=== PATIENT | male | born 1980 | race Two or more races ===

== ENCOUNTER 2020-03-09 09:49 | Emergency (ER) | payer MEDICAID, OTHER, SELFPAY ==
[~2020-03-09] VITALS: Ht 172.7 cm; Wt 105.6 kg
[2020-03-09 09:57] VITALS: BP 124/78
[2020-03-09] MEDS ORDERED: DIPHENHYDRAMINE 50 MG CAPSULE ONE (10:23)
[2020-03-09] MEDS ORDERED: FAMOTIDINE 20 MG TABLET ONE (10:23)
--- NOTE | 2020-03-09 10:28 | NUR ---
irritated skin to arms/legs torso sparing palms/soles/mucous membranes No kknown cause
[2020-03-09] MEDS ORDERED: DIPHENHYDRAMINE 12.5MG/5ML, 10ML UDC PO ONE (10:30)
[2020-03-09] MEDS ORDERED: FAMOTIDINE 20 MG TABLET PO ONE (10:30)
[2020-03-09] MEDS ORDERED: prednisOLONE 15 MG/5 ML ORAL SOLN PO ONE (10:30)
--- NOTE | 2020-03-09 10:30 | NUR ---
MEDICATED PER EMAR
[2020-03-09] MEDS ORDERED: DIPHENHYDRAMINE 25 MG CAPSULE PO ONE (11:00)
--- NOTE | 2020-03-09 11:13 | NUR ---
With reassessment no improvement in symptoms, nor any worsening
== END 2020-03-09 11:57 | disposition home or self-care (01) ==
LOC: ED 11:53
DX: R21 Rash and other nonspecific skin eruption (principal); T78.1XXA Other adverse food reactions, not elsewhere classified, initial encounter; X58.XXXA Exposure to other specified factors, initial encounter; Y93.89 Activity, other specified; Y92.89 Other specified places as the place of occurrence of the external cause; Y99.8 Other external cause status
CPT/HCPCS: 99284; J7512; Q0163